=== PATIENT | male | born 1990 | race Caucasian/White ===

== ENCOUNTER 2016-09-12 16:32 | Emergency (ER) | payer OTHER ==
[~2016-09-12] VITALS: Ht 177.8 cm; Wt 73.2 kg
[~2016-09-12 16:32] MED LIST: ALEVE220 MG PO; METHADONE5 MG PO; MOBIC15 MG PO; MOBIC7.5 MG PO; MOTRIN800 MG PO; RISPERDAL1 MG PO; RISPERIDONE1 MG; VYVANSE30 MG; ZANAFLEX4 M1 PO
[2016-09-12] MEDS ORDERED: NAPROXEN500 MG PO (20:26)
[2016-09-12] MEDS ORDERED: ATARAX,VISTARIL50 MG PO (20:26)
[2016-09-12] MEDS ORDERED: CATAPRES0.1 MG PO (20:26)
[2016-09-12 21:39] VITALS: BP 110/64
== END 2016-09-12 21:40 | disposition home or self-care (01) ==
LOC: EME 16:32
DX: F11.23 Opioid dependence with withdrawal (principal); G89.29 Other chronic pain; M54.5 Low back pain; F17.200 Nicotine dependence, unspecified, uncomplicated
CPT/HCPCS: 99281; 99284; J2550; J8540; Q0177